=== PATIENT | female | born 1990 | race Caucasian/White ===

== ENCOUNTER 2021-04-09 07:09 | Inpatient (IN) | payer OTHER ==
[2021-04-09] MEDS ORDERED: Ondansetron PF 4 MG/2 ML Vial IVP PRN ×3 (08:00→16:46)
[2021-04-09] MEDS ORDERED: hydrALAZINE 20 MG/ML VIAL SLOW IVP PRN ×2 (08:00→16:46)
[2021-04-09] MEDS ORDERED: Promethazine HCl 25 MG/ML VIAL IM PRN ×2 (08:00→11:09)
[2021-04-09] MEDS ORDERED: HYDROcodone/Acetaminophen 5/325 mg Tablet PO PRN ×4 (08:00→16:46)
[2021-04-09] MEDS ORDERED: Butorphanol Tartrate 1 MG/ML VIAL SLOW IVP PRN (08:00)
[2021-04-09] MEDS ORDERED: Lidocaine 1% (PF) 30 ML VIAL SC PRN (08:00)
[2021-04-09] MEDS ORDERED: Ibuprofen 800 MG TAB PO PRN (08:00)
[2021-04-09] MEDS ORDERED: Fentanyl 2 mcg/Bup 0.1% Cadd 100 ML ONE (08:25)
[2021-04-09 08:28] LABS: Hemoglobin 14.5 g/dL (12.0-15.5); Mean Corpuscular HGB CONC 34.9 g/dL (32.0-36.0); Mean Corpuscular Hemoglobin 30.4 pg (27.0-33.0); Mean Platelet Volume 11.7 fl (7.4-10.4); Platelet Count 223 10x3/uL (150-450); RBC Distribution Width 12.5 % (11.5-14.5); Red Blood Cell (RBC) Count 4.77 10x6/uL (3.90-5.03); White Blood Cell (WBC) Count 22.2 10x3/uL (3.5-10.5)
[2021-04-09] MEDS ORDERED: Famotidine/PF 20 mg/2ml Vial ONE (09:00)
[2021-04-09] MEDS: Lactated Ringer's 1,000 ML IV SCH ×2 (09:29→18:06)
[2021-04-09 09:38] LABS: Hep B Surf Ag Non-Reactive S/CO (NonReactive)
[2021-04-09 09:40] LABS: Syphilis Antibody Nonreactive (Nonreactive); Syphilis Antibody Index 0.03 S/CO (<1.00 Non-Reactive)
[2021-04-09 09:47] LABS: HBSAg Index 0.14 S/CO (0-0.99)
[2021-04-09 09:53] VITALS: BMI 32.2
[2021-04-09] MEDS ORDERED: Hydrocerin (Eucerin) Cream 120 gm Jar TOP PRN (11:09)
[2021-04-09] MEDS ORDERED: diphenhydrAMINE 50 MG/ML VIAL IVP PRN (11:09)
[2021-04-09] MEDS ORDERED: Lactated Ringer's 500 ML IV PRN (11:09)
[2021-04-09] MEDS ORDERED: Naloxone HCl 0.4 mg/ml Vial IVP PRN ×2 (11:09)
[2021-04-09] MEDS ORDERED: Acetaminophen 325 MG TAB PO PRN (11:09)
[2021-04-09] MEDS ORDERED: ePHEDrine Sulfate 50 MG/10 ML VIAL SLOW IVP PRN (11:09)
[2021-04-09] MEDS ORDERED: Communication Order-Pharmacy FS PRN (11:15)
[2021-04-09] MEDS ORDERED: Fentanyl 2 mcg/Bupivacaine 0.1% Cassette 100 ML EPIDURAL SCH (11:15)
[2021-04-09 13:09] LABS: SARS-CoV-2 NAA Rapid Test Not Detected (NotDetected)
[2021-04-09] MEDS: NS w/ Oxytocin 30 units 500 ML IV SCH ×2 (13:40→14:37)
[2021-04-09] MEDS ORDERED: Methylergonovine 0.2 MG/ML VIAL IM PRN (16:46)
[2021-04-09] MEDS ORDERED: Misoprostol 200 MCG TAB VAG PRN (16:46)
[2021-04-09] MEDS ORDERED: NS w/ Oxytocin 30 units 500 ML IV PRN (16:46)
[2021-04-09] MEDS ORDERED: Milk Of Magnesia 30 ML UDCUP PO PRN (16:46)
[2021-04-09] MEDS ORDERED: Bisacodyl 10 MG SUPP PR PRN (16:46)
[2021-04-09] MEDS ORDERED: Benzocaine-Menthol 82.5 ML CAN TOP PRN (16:46)
[2021-04-09] MEDS ORDERED: Boostrix 0.5 ML (Tdap) VIAL IM ONE (16:46)
[2021-04-09] MEDS: Ferrous Sulfate 325 MG TAB PO SCH (18:06)
[2021-04-09] MEDS: Ibuprofen 800 MG TAB PO SCH (21:17)
[2021-04-09] MEDS: Docusate Calcium (SURFAK) 240 MG CAP PO SCH (21:17)
[2021-04-10] MEDS: Ibuprofen 800 MG TAB PO SCH ×2 (05:21→13:43)
[2021-04-10] MEDS: Ferrous Sulfate 325 MG TAB PO SCH ×2 (08:30→14:28)
[2021-04-10] MEDS: Docusate Calcium (SURFAK) 240 MG CAP PO SCH (08:33)
[2021-04-10 11:36] VITALS: BP 137/74; TEMP 97.8
== END 2021-04-10 17:20 | disposition home or self-care (01) | DRG 807 ==
LOC: CSHLD/OP 07:09 → CSHLD 12:36 → CSHPP 16:27
PROVIDERS: ADMIT Student in an Organized Health Care Education/Training Program; ATTEND Student in an Organized Health Care Education/Training Program
PROC: 10E0XZZ Delivery of Products of Conception, External Approach (ICD-10-PCS; principal; 2021-04-09)
PROC: 0UQMXZZ Repair Vulva, External Approach (ICD-10-PCS; 2021-04-09)
DX: O99.344 Other mental disorders complicating childbirth (principal); Z37.0 Single live birth; F41.9 Anxiety disorder, unspecified; O71.82 Other specified trauma to perineum and vulva; Z3A.39 39 weeks gestation of pregnancy; Z20.822 Contact with and (suspected) exposure to COVID-19; Z88.0 Allergy status to penicillin; Z88.1 Allergy status to other antibiotic agents; Z88.2 Allergy status to sulfonamides
CPT/HCPCS: 0240U; 36415; 51702; 85027; 86780; 86850; 86900; 86901; 87340; 99285; J2405; J2590; S0028